=== PATIENT | female | born 1965 | race Caucasian/White ===

== ENCOUNTER 2020-04-18 06:30 | Day surgery (SDC) | payer OTHER ==
[~2020-04-18] VITALS: Ht 167.6 cm; Wt 60.2 kg
[~2020-04-18 06:30] MED LIST: CHOL10003 PO; DICLOFENAC GEL TP; NATURE-THYROID PO; ONDA4TAB13 SL; SELE200T10 PO
[2020-04-18] MEDS ORDERED: CHLORHEXIDINE 15 ML UDC MM ONE (07:00)
[2020-04-18] MEDS ORDERED: LACTATED RINGERS 1,000 ML IV SCH (07:00)
[2020-04-18 07:23] VITALS: BP 119/53
[2020-04-18 07:29] LABS: HCG UR SG 1.021 (1.003-1.030)
[2020-04-18] MEDS ORDERED: EPHEDRINE 50 MG/ML, 1ML IVPush PRN (07:30)
[2020-04-18] MEDS ORDERED: ONDANSETRON 2MG/ML, 2ML IVPush PRN (07:30)
[2020-04-18] MEDS ORDERED: MEPERIDINE/PF 25MG/0.5ML IVPush PRN (07:30)
[2020-04-18] MEDS ORDERED: PLEASE ENTER HEIGHT AND WEIGHT MC SCH (07:30)
[2020-04-18] MEDS ORDERED: OXYcodone 5 MG/5 ML ORAL.SOL UDC PO PRN (07:30)
[2020-04-18] MEDS ORDERED: LABETALOL 5MG/ML, 20ML IV PRN (07:30)
[2020-04-18] MEDS ORDERED: ACETAMINOPHEN 500 MG TABLET PO ONE (07:30)
[2020-04-18] MEDS ORDERED: FENTANYL PF 100 MCG/2ML IV PRN (07:30)
[2020-04-18] MEDS ORDERED: hydrALAzine 20 MG/ML, 1ML IV PRN (07:30)
[2020-04-18] MEDS ORDERED: PROMETHAZINE 25 MG/ML, 1ML IVPush PRN (07:30)
[2020-04-18] MEDS ORDERED: HYDROmorphone 1 MG/ML, 1ML INJ IVPush PRN (07:30)
[2020-04-18] MEDS ORDERED: BUPIVACAINE/PF 0.25% ONE (08:49)
[2020-04-18] MEDS ORDERED: EPINEPHRINE 1 MG/ML, 1ML ONE (08:49)
[2020-04-18] MEDS ORDERED: SILVER NITRATE STICK TP ONE (08:49)
[2020-04-18] MEDS ORDERED: FENTANYL PF 100 MCG/2ML ONE (08:59)
[2020-04-18] MEDS ORDERED: MIDAZOLAM 1 MG/ML, 2ML ONE (08:59)
[2020-04-18] MEDS ORDERED: KETOROLAC 30 MG/1 ML ONE (09:24)
[2020-04-18] MEDS ORDERED: PROPOFOL 10 MG/ML, 20ML ONE ×2 (09:42→09:43)
[2020-04-18] MEDS ORDERED: CEFAZOLIN 1,000 MG ONE (09:43)
[2020-04-18] MEDS ORDERED: DEXAMETHASONE 4 MG/ML, 1ML ONE (09:43)
[2020-04-18] MEDS ORDERED: ONDANSETRON 2MG/ML, 2ML ONE (09:43)
== END 2020-04-18 12:00 | disposition home or self-care (01) ==
LOC: OUT 06:30
PROVIDERS: ATTEND Obstetrics & Gynecology
DX: N93.8 Other specified abnormal uterine and vaginal bleeding (principal); D26.1 Other benign neoplasm of corpus uteri; E06.3 Autoimmune thyroiditis; E03.9 Hypothyroidism, unspecified; Z98.890 Other specified postprocedural states; Z79.899 Other long term (current) drug therapy; Z20.828 Contact with and (suspected) exposure to other viral communicable diseases
CPT/HCPCS: 58558; 81025; 87635; 88305; J0171; J0690; J1100; J1885; J2250; J2405; J2704; J3010; J7120

== ENCOUNTER → 2020-12-16 | Outpatient (CLI) | payer OTHER ==
[~2020-12-16] MED LIST changes: +CYAN50002 PO; +THYR90TA PO; +selenium PO
[2020-12-16 10:56] LABS: BASOPHILS % (AUTO) 1 % (0-1); EOSINOPHILS % (AUTO) 1 % (1-7); LYMPHOCYTES % (AUTO) 35 % (22-44); MEAN CORPUSCULAR HEMOGLOBIN 30.4 pg (27.0-34.8); MEAN CORPUSCULAR HGB CONC 33.6 g/dL (32.4-35.8); MEAN PLATELET VOLUME 7.8 fL (7.4-10.4); MONOCYTES % (AUTO) 7 % (2-9); NEUTROPHILS % (AUTO) 57 % (42-75); PLATELET COUNT 264 x10^3/uL (130-400); RED BLOOD COUNT 4.26 x10^6/uL (3.82-5.3); RED CELL DISTRIBUTION WIDTH 12.6 % (9.6-15.2)
[2020-12-16 11:07] LABS: CALCIUM 9.3 mg/dL (8.5-10.1); CHLORIDE 108 mmol/L (98-107); CREATININE 0.79 mg/dL (0.55-1.02)
[2020-12-16 11:14] LABS: ANION GAP 3 mmol/L (5-15)
== END | disposition home or self-care (01) ==
LOC: STAR 08:54
PROVIDERS: ATTEND Obstetrics & Gynecology
DX: Z01.818 Encounter for other preprocedural examination (principal); N93.9 Abnormal uterine and vaginal bleeding, unspecified; D25.9 Leiomyoma of uterus, unspecified; N95.0 Postmenopausal bleeding; N80.0 Endometriosis of uterus
CPT/HCPCS: 36415; 80048; 84703; 85025

== ENCOUNTER 2020-12-25 10:04 | Day surgery (SDC) | payer OTHER ==
[~2020-12-25] VITALS: Ht 165.1 cm; Wt 60.3 kg
[2020-12-25 10:35] VITALS: BP 96/62
[2020-12-25] MEDS ORDERED: CHLORHEXIDINE 15 ML UDC ONE (10:37)
[2020-12-25 10:43] LABS: HCG UR SG 1.018 (1.003-1.030)
[2020-12-25] MEDS ORDERED: CHLORHEXIDINE 15 ML UDC PO ONE (11:00)
[2020-12-25] MEDS ORDERED: LACTATED RINGERS 1,000 ML IV SCH (11:00)
[2020-12-25] MEDS ORDERED: FENTANYL PF 100 MCG/2ML ONE (11:26)
[2020-12-25] MEDS ORDERED: MIDAZOLAM 1 MG/ML, 2ML ONE (11:26)
[2020-12-25] MEDS ORDERED: SCOPOLAMINE 1MG PATCH TD ONE (11:43)
[2020-12-25] MEDS ORDERED: HYDROmorphone 2 MG/ML, 1ML ONE (11:46)
[2020-12-25] MEDS ORDERED: EPINEPHRINE 1 MG/ML, 1ML ONE (11:56)
[2020-12-25] MEDS ORDERED: BUPIVACAINE 0.25% ONE (11:56)
[2020-12-25] MEDS ORDERED: FLUORESCEIN SODIUM 500 MG/5 ML ONE (11:56)
[2020-12-25] MEDS ORDERED: MEPERIDINE/PF 25MG/0.5ML IVPush PRN (12:00)
[2020-12-25] MEDS ORDERED: SCOPOLAMINE 1MG PATCH TD SCH (12:00)
[2020-12-25] MEDS ORDERED: HYDROcodone/APAP 7.5-325MG/15ML UDC PO PRN (12:00)
[2020-12-25] MEDS ORDERED: PROMETHAZINE 25 MG/ML, 1ML IVPush PRN (12:00)
[2020-12-25] MEDS ORDERED: HYDROmorphone 1 MG/ML, 1ML INJ IVPush PRN (12:00)
[2020-12-25] MEDS ORDERED: OXYcodone 5 MG/5 ML ORAL.SOL UDC PO PRN (12:00)
[2020-12-25] MEDS ORDERED: ONDANSETRON 2MG/ML, 2ML IVPush PRN (12:00)
[2020-12-25] MEDS ORDERED: LIDOCAINE 1%, 10ML ONE (12:25)
[2020-12-25] MEDS ORDERED: PHENYLEPHRINE 10 MG/ML ONE (12:25)
[2020-12-25] MEDS ORDERED: CEFAZOLIN 1,000 MG ONE (14:56)
[2020-12-25] MEDS ORDERED: PROPOFOL 10 MG/ML, 20ML ONE (14:56)
[2020-12-25] MEDS ORDERED: ROCURONIUM 10MG/ML,5ML ONE (14:56)
[2020-12-25] MEDS ORDERED: NEOSTIGMINE 1 MG/ML, 10ML ONE (14:56)
[2020-12-25] MEDS ORDERED: DEXAMETHASONE 4 MG/ML, 1ML ONE (14:56)
[2020-12-25] MEDS ORDERED: GLYCOPYRROLATE 0.2MG/1ML, 5ML ONE (14:56)
[2020-12-25] MEDS ORDERED: ONDANSETRON 2MG/ML, 2ML ONE ×2 (14:56→15:35)
[2020-12-25] MEDS ORDERED: SUCCINYLCHOLINE 20 MG/ML, 10ML ONE (14:56)
[2020-12-25] MEDS ORDERED: OXYcodone 5 MG/5 ML ORAL.SOL UDC ONE (15:19)
[2020-12-25] MEDS ORDERED: PROMETHAZINE 12.5 MG SUPP PR PRN (18:00)
[2020-12-25] MEDS ORDERED: PROMETHAZINE 25 MG SUPP PR ONE (18:08)
== END 2020-12-25 19:45 | disposition home or self-care (01) ==
LOC: OUT 10:04
PROVIDERS: ATTEND Obstetrics & Gynecology
DX: N93.9 Abnormal uterine and vaginal bleeding, unspecified (principal); N84.0 Polyp of corpus uteri; D25.9 Leiomyoma of uterus, unspecified; N72 Inflammatory disease of cervix uteri; N80.0 Endometriosis of uterus; E03.9 Hypothyroidism, unspecified; E06.3 Autoimmune thyroiditis; Z79.890 Hormone replacement therapy; Z79.899 Other long term (current) drug therapy; Z88.8 Allergy status to other drugs, medicaments and biological substances; Z98.890 Other specified postprocedural states
CPT/HCPCS: 58552; 81025; 88307; J0171; J0330; J0690; J1100; J1170; J2250; J2405; J2704; J2710; J3010; J7120; J2370

== ENCOUNTER 2020-12-29 14:08 | Emergency (ER) | payer OTHER ==
[~2020-12-29] VITALS: Ht 165.1 cm; Wt 59.6 kg
--- NOTE | 2020-12-29 15:00 | NUR ---
DR BARRETO AT BEDSIDE. PT S/P HSTERECTOMY 12/[address] CABRAL. C/O ONSET OF N/V SINCE LAST NIGHT. UNABLE TO HOLD ANYTHING DOWN. PT GAVE HERSELF AN ENEMA THIS MORNING WITH RESULTS. PT ASSESSMENT, POC DISCUSSED AND QUESTIONS ANSWERED.
[2020-12-29] MEDS ORDERED: HYDROmorphone 2 MG/ML, 1ML ONE (15:11)
[2020-12-29] MEDS ORDERED: ONDANSETRON 2MG/ML, 2ML ONE (15:11)
[2020-12-29 15:30] LABS: BASOPHILS % (AUTO) 1 % (0-1); EOSINOPHILS % (AUTO) 1 % (1-7); LYMPHOCYTES % (AUTO) 17 % (22-44); MEAN CORPUSCULAR HEMOGLOBIN 30.5 pg (27.0-34.8); MEAN PLATELET VOLUME 7.7 fL (7.4-10.4); MONOCYTES % (AUTO) 6 % (2-9); NEUTROPHILS % (AUTO) 76 % (42-75); PLATELET COUNT 275 x10^3/uL (130-400); RED BLOOD COUNT 4.13 x10^6/uL (3.82-5.3); RED CELL DISTRIBUTION WIDTH 13.1 % (9.6-15.2)
[2020-12-29] MEDS ORDERED: ONDANSETRON 2MG/ML, 2ML IVPush ONE (15:30)
[2020-12-29] MEDS ORDERED: SODIUM CHLORIDE 0.9% 1,000ML IVBOLUS ONE (15:30)
[2020-12-29] MEDS ORDERED: HYDROmorphone 1 MG/ML, 1ML INJ IV ONE (15:30)
[2020-12-29] MEDS ORDERED: SODIUM CHLORIDE FLUSH 10ML SYR IVF ONE (15:30)
[2020-12-29] MEDS ORDERED: SODIUM CHLORIDE 0.9% 1,000 ML IV ONE (15:30)
[2020-12-29 15:42] LABS: ALBUMIN 3.5 g/dL (3.4-5.0); ANION GAP 3 mmol/L (5-15); CALCIUM 8.9 mg/dL (8.5-10.1); CHLORIDE 106 mmol/L (98-107)
--- NOTE | 2020-12-29 15:42 | NUR ---
IVF INFUSING AND PT WAS MED NOTED. WARM BLANKETS PLACED TO PAIN AREA AND FEET ELEVATED. PT NOW RPTS RIB PAIN RESOLVED AND EPIGASTRIC AREA PAIN 08/06. VSS.
[2020-12-29 15:46] LABS: ALANINE AMINOTRANSFERASE 25 U/L (12-78); ALKALINE PHOSPHATASE 60 U/L (45-117); BILIRUBIN,TOTAL 0.4 mg/dL (0.2-1.0); CREATININE 0.77 mg/dL (0.55-1.02); TOTAL PROTEIN 7.8 g/dL (6.4-8.2)
--- NOTE | 2020-12-29 16:04 | NUR ---
[facility] in [facility] - 12/29/20 at [address] PT [address] WITH TECH TRANSPORT
[2020-12-29] MEDS ORDERED: OMNIPAQUE 350 MG/ML, 100ML BOTTLE ONE ×2 (16:32→16:33)
[2020-12-29 16:37] LABS: MICROSCOPIC INDICATED
--- NOTE | 2020-12-29 17:17 | NUR ---
PT C/O NAUSEA AND DIZZINESS. NO VOMITING NOTED. ICE CHIPS AT BEDSIDE.
--- NOTE | 2020-12-29 17:22 | NUR ---
PTS NAUSEA DISCUSSED WITH DR. BARRETO.
[2020-12-29 19:00] VITALS: BP 124/55
--- NOTE | 2020-12-29 19:17 | NUR ---
Patient/Caregiver given discharge instructions and they have confirmed that they understand the instructions. Patient ambulatory with steady gait. NAD, all questions answered appropriately, denies additional needs at this time. No personal belongings left in room after discharge.
== END 2020-12-29 19:48 | disposition home or self-care (01) ==
LOC: ED 19:31
DX: R10.13 Epigastric pain (principal); R11.2 Nausea with vomiting, unspecified; E86.0 Dehydration; Z90.710 Acquired absence of both cervix and uterus
CPT/HCPCS: 36415; 74177; 80053; 81001; 83690; 85025; 87077; 87086; 96361; 96374; 99285; J1170; J7030; Q9967; 87186